=== PATIENT | male | born 1970 | race Caucasian/White ===

== ENCOUNTER 2018-07-10 05:28 | Emergency (ER) | payer SELFPAY ==
[2018-07-10 05:35] VITALS: BP 186/116
[2018-07-10] MEDS ORDERED: CARV25TA78 PO (05:41)
[2018-07-10] MEDS ORDERED: OMEP40CA48 PO (05:41)
[2018-07-10] MEDS ORDERED: AMLO-5 PO (05:41)
[2018-07-10] MEDS ORDERED: LOSA50TA74 PO (05:41)
[2018-07-10] MEDS ORDERED: PRED20TA6 PO (05:58)
[2018-07-10] MEDS ORDERED: AMOX-559 PO (05:58)
[2018-07-10] MEDS ORDERED: BETD15T TOP (05:58)
--- NOTE | 2018-07-10 06:01 | ER Report ---
History and Physical Time Seen By MD: 05:34 Hx. of Stated Complaint: rash all over body, started 7 days ago. began on his right hand, can barely move fingers from being so swollen HPI/ROS CHIEF COMPLAINT: rash HISTORY OF PRESENT ILLNESS: This is a 48 year old male. He has had a rash for about 7 days. Worsening. Started on his hands, first on the right hand, then on the left. Was small blisters, clear colored on palms and fingers. Itchy. These eventually ruptured and then may scabbed. His right thumb area is red and swollen now with some of the sores draining and also a crusted appearance. He also started to develop some red patches on his arms and trunk. Some have associated scaling appearance now. No fevers or chills. 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 They did transfer a load of eggs where they had to wear a lot of protective equipment. They took pictures of the initial rash with their phone and showed me these photos. REVIEW OF SYSTEMS: Respiratory: No cough, no dyspnea. Cardiovascular: No chest pain, no palpitations. Gastrointestinal: No vomiting, no abdominal pain. Genitourinary: No dysuria. Musculoskeletal: No musculoskeletal pain. Allergies: Coded Allergies: No Known Drug Allergies (Unverified , 07/10/18) Home Meds Active Scripts Amoxicillin/Pot Clav 875-125 Mg Tab (AUGMENTIN 875-125 TABLET) 1 Each Tablet, 1 TAB PO Q12H, #20 TAB 0 Refills Prov:WES DE LA PAZ MD 07/10/18 Prednisone (PREDNISONE) 20 Mg Tablet, 20 MG PO DIRECTED, #26 TAB 0 Refills Take 3 tablet once a day for 4 days, Then take 2 tablets once a day for 4 days, Then take 1 tablet once a day for 4 days, Then take 1/2 tablet once a day for 4 days, Then stop. Prov:WES DE LA PAZ MD 07/10/18 Betamethasone Dip (BETAMETHASONE DIPROPIONATE) 15 Gm Cr, 15 GM TOP BID, #1 TUBE 0 Refills Prov:WES DE LA PAZ MD 07/10/18 Reported Medications Amlodipine/Atorvastatin (AMLODIPINE-ATORVAST 10-10 MG) 1 Each Tablet, 1 EACH PO QDAY, TAB 07/10/18 Carvedilol (CARVEDILOL) 25 Mg Tablet, 25 MG PO BID, #10 TAB 07/10/18 Losartan Potassium (LOSARTAN POTASSIUM) 50 Mg Tablet, 50 MG PO QDAY 07/10/18 Omeprazole (OMEPRAZOLE) 40 Mg Capsule.dr, 40 MG PO BID, CAP 07/10/18 Reviewed Nurses Notes: Yes Hx Substance Use Disorder: No Hx Alcohol Use: No Constitutional Vital Sign - Last 24 Hours 07/10/18 05:35 Temp 97.8 Pulse 108 Resp 18 B/P (MAP) 186/116 Pulse Ox 92 O2 Delivery Room Air Physical Exam General: Alert, oriented, no acute distress. Skin: Red and warm skin of the right thumb and thenar area with draining sores with honey-crusted appearance on some. Also some blisters with whitish color. Macerated skin in some areas from the bandaging he has been using. The rest of the hands have some small scabs. He has macular patches on arms and trunk, many with associated scale. No nodules felt. Nothing on lower extremities. Neuro: normal Musculoskeletal: Normal Cardiovascular: normal cap refill and pulses Medical Decision Making ED Course/Re-evaluation ED Course Based on the description of the initial lesions and the pictures that they showed me, this appears to be an eczema patter, specifically a dyshidrotic eczema patter, followed by general eczematous rash. Less likely would be herpetic rash, but definitely not shingles. There is associated eczematous rashes on arms and trunk. He has no lesions on the lower extremities. He has associated infection secondarily of the right thumb. Will start Prednisone and Augmenting. Giving a dose of IM Rocephin this morning. If not improving, or only partial improvement, would recommend follow-up with primary care or dermatology to consider biopsy, or trial of an antiviral. See instructions below. Decision to Disposition Date: Jul 10, 2018 Decision to Disposition Time: 05:55 Depart Departure Latest Vital Signs Vital Signs Date Time Temp Pulse Resp B/P (MAP) Pulse Ox O2 Delivery O2 Flow Rate FiO2 07/10/18 05:35 97.8 108 18 186/116 92 Room Air Impression: Primary Impression: Cellulitis Additional Impressions: Eczematous dermatitis Dyshidrotic eczema Condition: Improved Disposition: HOME OR SELF-CARE New Scripts Amoxicillin/Pot Clav 875-125 Mg Tab (AUGMENTIN 875-125 TABLET) 1 Each Tablet 1 TAB PO Q12H, #20 TAB 0 Refills Prov: WES DE LA PAZ MD 07/10/18 Prednisone (PREDNISONE) 20 Mg Tablet 20 MG PO DIRECTED, #26 TAB 0 Refills Take 3 tablet once a day for 4 days, Then take 2 tablets once a day for 4 days, Then take 1 tablet once a day for 4 days, Then take 1/2 tablet once a day for 4 days, Then stop. Prov: WES DE LA PAZ MD 07/10/18 Betamethasone Dip (BETAMETHASONE DIPROPIONATE) 15 Gm Cr 15 GM TOP BID, #1 TUBE 0 Refills Prov: WES DE LA PAZ MD 07/10/18 Patient Instructions: Cellulitis (ED), Dyshidrotic Eczema (ED), Eczema (ED) Additional Instructions: Wash once or twice a day with soap and water. Dry and then for the infected areas, apply a small amount of antibiotic ointment and a gauze bandage. Take the steroid Prednisone 20mg tablets: Take 3 tablet once a day for 4 days, Then take 2 tablets once a day for 4 days, Then take 1 tablet once a day for 4 days, Then take 1/2 tablet once a day for 4 days, Then stop. Take the antibiotic Augmenting: Take 1 tablet twice a day for 10 days. Once the rash has cleared up, you can use a steroid cream to treat small areas that may creep up again. Betamethasone Dipropionate cream, applied to small areas twice a day as needed. Problem Qualifiers Primary Impression: Cellulitis Site of cellulitis: extremity Site of cellulitis of extremity: upper extremity Laterality: right Qualified Codes: L03.113 - Cellulitis of right upper limb WES DE LA PAZ MD Jul 10, 2018 06:01
[2018-07-10] MEDS ORDERED: predniSONE 20 MG TAB PO ONE (06:05)
[2018-07-10] MEDS ORDERED: LIDOCAINE 1% MDV 200 MG/20 ML INJ ONE (06:05)
[2018-07-10] MEDS ORDERED: cefTRIAXone 1 GM VIAL IM ONE (06:05)
[2018-07-10] MEDS ORDERED: AMOX/CLAV 875 MG TAB PO ONE (06:05)
== END 2018-07-10 06:15 | disposition home or self-care (01) ==
LOC: ER 05:48
DX: L03.011 Cellulitis of right finger (principal); L30.9 Dermatitis, unspecified; L30.1 Dyshidrosis [pompholyx]
CPT/HCPCS: 96372; 99283; J0696; J2001; J7512